=== PATIENT | male | born 1970 | race Caucasian/White ===

== ENCOUNTER 2021-08-31 12:16 | Outpatient (NON) | payer OTHER, SELFPAY ==
[2021-08-31 13:24] LABS: Crystals Synovial Fluid None Seen (None Seen)
[2021-08-31 13:48] LABS: Source Synovial Fluid Synovial fluid
[2021-08-31 13:49] LABS: Appearance Synovial Fluid Hazy (Clear); Color Synovial Fluid Red (Colorless); Nucleated Cell Synovial Fluid 287 /uL (0-200); RBC Synovial Fluid 8014 /uL (0-0)
[2021-08-31 13:50] LABS: Lymphocytes Synovial Fluid 45 %; Macrophages Synovial Fluid 9 %; Monocytes Synovial Fluid 40 %; Neutrophils Synovial Fluid 3 % (0-25); Other Cells Synovial Fluid 3 %
== END 2021-08-31 12:17 | disposition home or self-care (01) ==
LOC: HOME HLTH 12:25
PROVIDERS: Visit Provider Orthopaedic Surgery
DX: M25.561 Pain in right knee (principal); M25.461 Effusion, right knee
CPT/HCPCS: 89051; 89060

== ENCOUNTER 2022-12-01 13:44 | Outpatient (CLI) | payer OTHER, SELFPAY ==
--- NOTE | 2022-12-01 17:03 | WPDPFTINT ---
PFT Procedure Performed PFT Procedure Performed Spirometry with Pre/Post Bronchodilator Plethysmography (Lung Vol) Diffusing Cap (DLCO) Flow Vol Loop PFT Interpretation This is a pulmonary function test with pre and post-bronchodilator spirometry, plethysmography and diffusing capacity. The test was performed and results interpreted in accordance with the 2019 and 2005 ATS/ERS Task Force guidelines respectively using the Global Lung Function Initiative-2012 reference equations. Patient demonstrated good effort and cooperation. Reproducibility criteria were met. The quality of the pre bronchodilator spirometry maneuver was Grade A and post bronchodilator spirometry maneuver was Grade A. Findings: Spirometry: There is decreased maximal expiratory airflow at low lung volumes with concave expiratory flow tracing. The contour the inspiratory flow tracing is normal. The pre bronchodilator FVC is 3.91 L, 84% predicted. The pre bronchodilator FEV1 is 2.71 L, 73% predicted. The pre bronchodilator FEV1: FVC ratio 69%. The post bronchodilator FVC is 4.20 L, representing a 7% increase. The post bronchodilator FEV1 is 2.83 L, representing a 5% increase. The post bronchodilator FEV1: FVC ratio is 67%. Plethysmography: The total lung capacity is 6.29 L, 96% predicted. The functional residual capacity is 2.98 L, 90% predicted. The residual volume is 2.15 L, 112% predicted. Diffusing capacity: The diffusing capacity unadjusted for hemoglobin and carboxyhemoglobin is 26.0, 87% predicted. The diffusing capacity adjusted for alveolar volume is 5.07, 109% predicted. Impression: There is a mild obstructive abnormality without significant improvement after inhaling a single dose of albuterol. The lung volumes are normal. The diffusing capacity is normal. There are no prior studies for comparison
== END 2022-12-01 13:45 | disposition home or self-care (01) ==
LOC: ANHPFT 13:45
PROVIDERS: Visit Provider Nurse Practitioner
DX: J45.909 Unspecified asthma, uncomplicated (principal); R94.2 Abnormal results of pulmonary function studies
CPT/HCPCS: 94060; 94726; 94729

== ENCOUNTER 2023-02-22 21:23 | Emergency (ER) | payer OTHER, SELFPAY ==
--- NOTE | ~2023-02-22 | XR_ITS ---
Right Knee Technique: AP, lateral, and oblique views were obtained. Clinical History: Pain Findings: No fracture or dislocation is seen. Osseous alignment is anatomic. Minimal spurring noted a t the medial joint line. Probable small joint effusion is seen. Impression: Probable small joint effusion. Minimal spurring at the medial joint line. Reviewed, dictated and finalized at [facility]. Impression: Probable small joint effusion. Minimal spurring at the medial joint line.
[2023-02-22 21:25] VITALS: BP 138/92; PULSE 102; RESP 15; TEMP 36.8; O2SAT 100
[2023-02-22 22:00] VITALS: BP 130/74; PULSE 84; RESP 18; TEMP 36.6; O2SAT 100
--- NOTE | 2023-02-22 22:52 | PC.NURSE ---
pt sts that he twisted his R knee and it is bone on bone.
--- NOTE | 2023-02-22 23:37 | ED.LOWEXIN ---
HPI - Extremity Injury (Lower) General Chief Complaint: Extremity Injury, Lower Stated Complaint: right knee pain and back pain Time Seen by Provider: 02/22/23 23:08 History of Present Illness HPI Narrative: 53-year-old male with a history of osteoarthritis to his right knee reports for evaluation for right knee pain after injury today. Patient states he got his foot lodged between 2 pieces of wood and caused his knee to have increased valgus stress and fall to the ground. Patient states the knee pain is located in the medial aspect with associated edema. He denies a significant popping sensation, states his knee frequently pops. States he landed on his shoulder and braced himself with his right wrist. He is reporting some tenderness to the distal radius and generalized deep pain in his shoulder. Denies hitting his head or LOC, denies other injuries acquired during the fall. denies numbness or tingling. He is ambulatory with a limp. He currently has a knee brace applied from home for comfort. He has not taken anything for pain. Related Data Allergies Allergy/AdvReac Type Severity Reaction Status Date / Time codeine Allergy Vomiting Verified 02/22/23 21:27 Review of Systems Review of Systems: CONSTITUTIONAL: Denies fever, chills EYES: Denies visual changes, redness, or discharge. ENT: Denies rhinorrhea, congestion, sore throat, or otalgia. CARDIOVASCULAR: Denies chest pain, palpitations, or edema. RESPIRATORY: Denies cough or dyspnea. GASTROINTESTINAL: Denies abdominal pain, nausea, vomiting, or diarrhea. GENITOURINARY: Denies dysuria or hematuria. SKIN: Denies rash or itching. MUSCULOSKELETAL: See HPI NEUROLOGIC: Denies headache, numbness, dizziness, or weakness. PSYCHIATRIC: Denies anxiety or depression. Exam Narrative: GENERAL: Well-appearing, in no acute distress. HEAD: Normocephalic NECK: Supple. CHEST: No respiratory distress. Clear to auscultation, no adventitious breath sounds. HEART: Regular rate and rhythm. No murmur heard. Normal peripheral pulses. ABDOMEN: Soft, nontender, normal active bowel sounds. EXTREMITIES: RLE: edema to knee with tenderness to the medial joint line. Limited active and passive flexion, full extension. No erythema or warmth. Negative anterior and posterior drawer, negative varus and valgus stress. No tenderness to remainder of lower extremity. DP pulse 2+. Cap refill less than 2. Sensation intact. RUE: No tenderness to shoulder, full range of motion of shoulder. Mild tenderness to the distal radius over the dorsum of the wrist without crepitus, full range of motion of wrist and fingers. Radial, median and ulnar nerve intact. Cap refill is in 2. Radial pulse 2+. SKIN: Warm, dry, no rash. NEURO: No focal deficits. Alert and oriented x3. PSYCH: Normal mood and affect. Course Vital Signs Vital signs: Vital Signs Temperature 98.3 F 02/22/23 21:25 Pulse Rate 102 H 02/22/23 21:25 Respiratory Rate 15 02/22/23 21:25 Blood Pressure 138/92 H 02/22/23 21:25 Pulse Oximetry 100 02/22/23 21:25 Oxygen Delivery Room Air 02/22/23 21:25 Temperature 97.9 F 02/22/23 22:00 Pulse Rate 84 02/22/23 22:00 Respiratory Rate 18 02/22/23 22:00 Blood Pressure 130/74 02/22/23 22:00 Pulse Oximetry 100 02/22/23 22:00 Oxygen Delivery Room Air 02/22/23 21:25 MDM - Extremity Injury (Lower) MDM Narrative Medical decision making narrative: 53-year-old male with a history of osteoarthritis to his right knee reports for evaluation for right knee pain after injury today, as well as pain in his right shoulder and right wrist. Exam is significant for the above. Patient declines x-rays of his shoulder and wrist given he has full range of motion and states he just feels sore . He is neurovascularly intact. X-ray of the knee shows no acute fracture or dislocation, there is a knee joint effusion and mild hypertrophic degenerative changes with narrowing of the m
[2023-02-22] MEDS: ACETAMINOPHEN 500 MG TABLET 1000 MG PO (23:39)
[2023-02-22] MEDS: IBUPROFEN 600 MG TABLET PO (23:40)
== END 2023-02-23 05:29 | disposition home or self-care (01) ==
PROVIDERS: Emergency Provider Physician Assistant
DX: S83.91XA Sprain of unspecified site of right knee, initial encounter (principal); W23.2XXA Caught, crushed, jammed or pinched between a moving and stationary object, initial encounter; W19.XXXA Unspecified fall, initial encounter
CPT/HCPCS: 73564; 99283; A9270

== ENCOUNTER 2024-04-22 09:43 | Emergency (ER) | payer OTHER, SELFPAY ==
--- NOTE | ~2024-04-22 | XR_ITS ---
EXAMINATION: XR chest 2V DATE: 04/22/2024 11:16 INDICATION: Chest pain. TECHNIQUE: Frontal and lateral views of the chest were obtained. COMPARISON: None. FINDINGS: There is mild scarring at the lung apices. No pleural effusion or pneumothorax. The heart s ize is normal. IMPRESSION: 1. Mild scarring at the lung apices. Reviewed, dictated and finalized at location A.
[2024-04-22 09:56] VITALS: BP 136/86; PULSE 71; RESP 20; TEMP 36.4; O2SAT 98
--- NOTE | 2024-04-22 10:01 | ECG_ITS ---
Test Date: 2024-04-22 10:11:57 Measurements Intervals [place] Rate: 70 P: 5 ND: 179 QRS: 39 QRSD: 100 T: 50 QT: 377 QTc: 409 Interpretive Statements SINUS RHYTHM WITH SINUS ARRHYTHMIA BASELINE ARTIFACT- I, II, III NORMAL ECG No previous ECG available for comparison Electronically Signed On 04-22-2024 10:46:51 CDT by Chapin Horowitz D.O.
[2024-04-22 10:24] LABS: Glucose Point of Care 115 mg/dl (65-105)
[2024-04-22 10:27] LABS: Basophils Percent Auto 0.9 % (0.2-1.2); Eosinophils Absolute Auto 0.1 K/mm3 (0-0.3); Eosinophils Percent Auto 1.4 % (0-4.4); Hematocrit 46.1 % (42.0-52.0); Hemoglobin 15.4 g/dL (14.0-18.0); Immature Granulocyte Absolute 0.02 K/mm3 (0.00-0.031); Immature Granulocyte Percent A 0.5 % (0-0.5); Lymphocytes Absolute Auto 1.63 K/mm3 (0.9-3.2); Lymphocytes Percent Auto 38.4 % (18.3-44.2); Mean Corpuscular HGB Conc 33.4 g/dl (32-36); Mean Corpuscular Hemoglobin 31.2 pg (26-34); Mean Corpuscular Volume 93.5 fl (80-100); Mean Platelet Volume 10.1 fl (7.4-10.4); Monocytes Absolute Auto 0.5 K/mm3 (0.1-0.6); Monocytes Percent Auto 11.6 % (2.6-8.5); Neutrophils Percent Auto 47.2 % (45.5-73.1); Platelet Count Result 258 k/mm3 (150-375); Red Blood Count 4.93 M/mm3 (4.6-6.20); Red Cell Distribution Width 12.7 % (11.5-14.5); White Blood Count 4.2 K/mm3 (4.5-10.0)
[2024-04-22 10:40] LABS: INR 1.1; Prothrombin Time 14.2 Seconds (11.1-14.7)
[2024-04-22 10:41] LABS: Partial Thromboplastin Time 28.1 Seconds (22.3-36.8)
[2024-04-22 10:45] LABS: Alanine Aminotransferase 121 U/L (6-50); Albumin Level 4.7 g/dL (3.5-5.1); Alkaline Phosphatase 77 U/L (38-126); Anion Gap 11 mmol/L (4-12); Aspartate Amino Transferase 71 U/L (17-59); Bilirubin,Total 0.6 mg/dL (0.2-1.3); Blood Urea Nitrogen 16 mg/dL (9-20); Calcium 8.9 mg/dL (8.4-10.2); Carbon Dioxide 26 mmol/L (22-30); Chloride 102 mmol/L (98-107); Estimated CRCL calculation 110 ml/min; Estimated Glomerular Filt Rate > 60; Glucose 109 mg/dL (65-110); Lipase 164 U/L (23-300); Potassium 3.7 mmol/L (3.4-5.0); Sodium 139 mmol/L (137-145)
[2024-04-22 10:55] LABS: Troponin I < 0.012 ng/mL (0.000-0.034)
--- NOTE | 2024-04-22 11:29 | ED.GENADULT ---
HPI - General Adult General Chief complaint: Unspecified Stated complaint: face burning, hands sweaty Time Seen by Provider: 04/22/24 10:57 Source: patient Mode of arrival: ambulatory Limitations: no limitations History of Present Illness HPI narrative: This is a 54-year-old female who presents to the ED with chief complaint of feeling weird. Endorses dry mouth, tightness in the neck and chest and had some sweats earlier today. Reports some bilateral upper extremity tingling as well. Reports that he had COVID last week and felt like he was getting over it. He did have his tizepatide injection for the second time 2 days ago. denies abdominal pain, nausea, vomiting, fevers, chills. states that he has been out of his clonazepam for the past 2 days which she normally takes for anxiety and symptoms similar to his presentation today. Related Data Allergies Allergy/AdvReac Type Severity Reaction Status Date / Time codeine AdvReac Vomiting Verified 04/22/24 10:06 Review of Systems Review of Systems: All systems as dictated in HPI Exam Narrative: GENERAL: Well-appearing, well-nourished, and in no acute distress. HEAD: Normocephalic, atraumatic. EYES: PERRLA and EOMI. ENT: Nares clear, no rhinorrhea or epistaxis. Mucous membranes moist. Oropharynx without tonsillar hypertrophy exudate or other lesions. NECK: Supple. No adenopathy or masses. CHEST: No respiratory distress. Clear to auscultation. No wheezes rales or rhonchi HEART: Regular rate and rhythm. No murmur heard. Normal peripheral pulses. ABDOMEN: Soft, nontender, nondistended, normal active bowel sounds. MSK: Normal range of motion. No edema. SKIN: Warm, dry, no rash. NEURO: Alert and oriented x4. No focal deficits. PSYCH: Normal mood and affect. Course Vital Signs Vital signs: Vital Signs Temperature 97.6 F 04/22/24 09:56 Pulse Rate 71 04/22/24 09:56 Respiratory Rate 20 04/22/24 09:56 Blood Pressure 136/86 04/22/24 09:56 Pulse Oximetry 98 04/22/24 09:56 Oxygen Delivery Room Air 04/22/24 09:56 Temperature 98.1 F 04/22/24 12:32 Pulse Rate 70 04/22/24 12:32 Respiratory Rate 12 04/22/24 12:32 Blood Pressure 123/77 04/22/24 12:32 Pulse Oximetry 93 04/22/24 12:32 Oxygen Delivery Room Air 04/22/24 09:56 Medical Decision Making MDM Narrative Medical decision making narrative: This is a 54-year-old male who presents to the ED for anxiety symptoms after being out of his Klonopin for the past 2 days. Vitals are normal. Exam is benign. Laboratory workup is unremarkable overall. Chest x-ray shows no acute findings. EKG shows sinus rhythm with sinus arrhythmia. patient was given his home dose of clonazepam here. Informed patient that we cannot refill this prescription. Pt will be discharged in stable condition. Return precautions given and supportive measures discussed. Pt is understanding and agreeable with plan for discharge and follow-up with PCP. Vital Signs Vital Signs: Vital Signs Temperature 97.6 F 04/22/24 09:56 Pulse Rate 71 04/22/24 09:56 Respiratory Rate 20 04/22/24 09:56 Blood Pressure 136/86 04/22/24 09:56 Pulse Oximetry 98 04/22/24 09:56 Oxygen Delivery Room Air 04/22/24 09:56 Temperature 98.1 F 04/22/24 12:32 Pulse Rate 70 04/22/24 12:32 Respiratory Rate 12 04/22/24 12:32 Blood Pressure 123/77 04/22/24 12:32 Pulse Oximetry 93 04/22/24 12:32 Oxygen Delivery Room Air 04/22/24 09:56 Lab Data 04/22/24 10:18 04/22/24 10:18 Labs: Lab Results 04/22/24 04/22/24 04/22/24 Range/Units 10:07 10:17 10:18 WBC 4.2 L (4.5-10.0) K/mm3 RBC 4.93 (4.6-6.20) M/mm3 Hgb 15.4 (14.0-18.0) g/dL Hct 46.1 (42.0-52.0) % MCV 93.5 (80-100) fl MCH 31.2 (26-34) pg MCHC 33.4 (32-36) g/dl RDW 12.7 (11.5-14.5) % Plt Count 258 (150-375) k/mm3 MPV 10.1 (7.4-10.4) fl Eleonora
[2024-04-22] MEDS: clonazePAM (*CRX) 0.5 MG TABLET PO (11:41)
[2024-04-22 11:51] VITALS: BP 129/82; PULSE 78; RESP 19; O2SAT 96
--- NOTE | 2024-04-22 12:23 | PC.NURSE ---
Patient states that he took 3 baby aspirin prior to ED visit today.
[2024-04-22 12:32] VITALS: BP 123/77; PULSE 70; RESP 12; TEMP 36.7; O2SAT 93
== END 2024-04-22 12:34 | disposition home or self-care (01) ==
PROVIDERS: Emergency Medicine; Emergency Provider Physician Assistant
DX: F41.9 Anxiety disorder, unspecified (principal); Z86.16 Personal history of COVID-19
CPT/HCPCS: 36415; 71046; 80053; 82948; 83690; 84484; 85025; 85610; 85730; 93005; 99284; A9270